=== PATIENT | female | born 1955 | race Caucasian/White ===

== ENCOUNTER 2020-04-07 01:31 | Emergency (ER) | payer MEDICAID ==
[~2020-04-07] VITALS: Ht 160 cm; Wt 65.9 kg
[2020-04-07 01:33] VITALS: TEMP 98
[2020-04-07 05:59] VITALS: BP 140/54; PULSE 84
== END 2020-04-07 06:10 | disposition home or self-care (01) ==
LOC: COL.ER 01:31
DX: S00.83XA Contusion of other part of head, initial encounter (principal); R40.2410 Glasgow coma scale score 13-15, unspecified time; F17.210 Nicotine dependence, cigarettes, uncomplicated; W01.10XA Fall on same level from slipping, tripping and stumbling with subsequent striking against unspecified object, initial encounter; Y92.009 Unspecified place in unspecified non-institutional (private) residence as the place of occurrence of the external cause